=== PATIENT | male | born 1965 | race Caucasian/White ===

== ENCOUNTER → 2017-05-22 | Outpatient (CLI) | payer BC | LOC: CARDREHAB 11:28 → CARDLAB 14:02 | DX: Z68.28 Body mass index [BMI] 28.0-28.9, adult (principal); R06.83 Snoring; R53.83 Other fatigue; R40.0 Somnolence; G47.00 Insomnia, unspecified | CPT/HCPCS: G0399 ==

== ENCOUNTER → 2019-05-12 | Outpatient (CLI) | payer BC | LOC: PT 08:30 | DX: S43.431D Superior glenoid labrum lesion of right shoulder, subsequent encounter (principal) ==

== ENCOUNTER 2019-07-23 09:30 | Outpatient (RCR) | payer BC | END 2019-08-17 | disposition still patient (30) | LOC: PT | DX: M75.21 Bicipital tendinitis, right shoulder (principal); Z98.890 Other specified postprocedural states ==

== ENCOUNTER → 2022-05-01 | Outpatient (CLI) | payer BC ==
[2022-05-01 16:24] LABS: T3 FREE 2.6 pg/mL (1.7-3.7)
== END ==
LOC: LAB 07:16
PROVIDERS: Psychiatry & Neurology Neurology
DX: R51.9 Headache, unspecified (principal)

== ENCOUNTER → 2022-05-03 | Outpatient (CLI) | payer BC | LOC: RAD 08:41 | DX: H02.409 Unspecified ptosis of unspecified eyelid (principal); R51.9 Headache, unspecified | CPT/HCPCS: Q9967 ==

== ENCOUNTER → 2023-10-02 | Outpatient (CLI) | payer BC | LOC: RAD 08:01 | DX: M77.8 Other enthesopathies, not elsewhere classified (principal) ==